=== PATIENT | female | born 1950 | race Caucasian/White ===

== ENCOUNTER → 2017-02-06 | Outpatient (CLI) | payer OTHER ==
--- NOTE | 2017-02-06 10:23 | RADRPT ---
EXAM DATE/TIME: 02/06/2017 09:31 [place] COMPARISON: No previous studies available for comparison. INDICATIONS : Left ear pain. Dysfunction of left eustachian tube. MEDICAL HISTORY : Renal insufficiency, chronic. SURGICAL HISTORY : Tonsillectomy. ENCOUNTER: Initial ACUITY: 1 week PAIN SCORE: 4/10 LOCATION: head/left ear TECHNIQUE: Multiplanar, multisequence MRI of the brain was performed without contrast. FINDINGS: There are moderate periventricular white matter changes evident. There is no parenchymal hemorrhage, acute infarction or mass lesion. There is no restricted diffusion. Posterior fossa is unremarkable. Very minimal mastoid disease is present on the left. Seventh and e ighth cranial nerves are unremarkable. There is no significant sinus disease. CONCLUSION: Very minimal mastoid disease on the left, nonspecific. No other abnormalities appreciated. Francisco Otero MD FACR on February 06, 2017 at 10:12 Board Certified Radiologist. This report was verified electronically.
== END ==
LOC: HRAD 09:01
DX: H92.02 Otalgia, left ear (principal); H69.82 Other specified disorders of Eustachian tube, left ear; R51 Headache
CPT/HCPCS: 70551